=== PATIENT | male | born 1965 | race Caucasian/White ===

== ENCOUNTER 2024-07-30 13:16 | Day surgery (SDC) | payer OTHER ==
[~2024-07-30 13:16] MED LIST: Sodium Chloride 0.9% 10 ML Syringe FLUSH PRN
[2024-07-30] MEDS: Lactated Ringers 1,000 ML IV SCH (13:26)
[2024-07-30] MEDS ORDERED: Midazolam 1 MG/ML 2 ML SDV ONE (14:02)
[2024-07-30] MEDS ORDERED: Propofol 200 MG/20 ML SDV ONE (14:02)
== END 2024-07-30 15:42 | disposition home or self-care (01) ==
LOC: KA.SDS 13:16
PROVIDERS: ATTEND Surgery
DX: Z12.11 Encounter for screening for malignant neoplasm of colon (principal); K57.30 Diverticulosis of large intestine without perforation or abscess without bleeding; Z79.899 Other long term (current) drug therapy
CPT/HCPCS: 45378; J2250; J2704; J7120; 00812